=== PATIENT | female | born 1985 | race Caucasian/White ===

== ENCOUNTER 2022-07-28 22:46 | Emergency (ER) | payer SELFPAY ==
[~2022-07-28] VITALS: Ht 160 cm; Wt 79.0 kg
[2022-07-29] MEDS ORDERED: KETOROLAC 60MG/2ML VIAL IM ONE (00:15)
[2022-07-29 00:27] VITALS: BP 122/80
== END 2022-07-29 01:05 | disposition home or self-care (01) ==
LOC: ER 22:46
DX: R07.0 Pain in throat (principal); E11.8 Type 2 diabetes mellitus with unspecified complications; E11.9 Type 2 diabetes mellitus without complications; Z98.890 Other specified postprocedural states
CPT/HCPCS: 81025; 96372; 99283; J1885; Z7610